=== PATIENT | female | born 1985 | race Caucasian/White ===

== ENCOUNTER 2020-02-10 11:00 | Outpatient (REF) | payer OTHER, SELFPAY ==
[2020-02-10 11:51] LABS: COVID-19 Test Negative (Negative)
== END 2020-02-10 11:01 | disposition home or self-care (01) ==
LOC: HO.LAB 11:00
PROVIDERS: Visit Provider Internal Medicine
DX: Z20.828 Contact with and (suspected) exposure to other viral communicable diseases (principal)
CPT/HCPCS: 87635

== ENCOUNTER 2020-03-30 08:57 | Outpatient (REF) | payer OTHER, SELFPAY ==
[2020-03-30 09:09] LABS: COVID-19 Test Positive (Negative)
== END 2020-03-30 08:58 | disposition home or self-care (01) ==
LOC: HO.EMPCOV 08:57
PROVIDERS: Visit Provider Internal Medicine
DX: Z20.828 Contact with and (suspected) exposure to other viral communicable diseases (principal)
CPT/HCPCS: 87635; C9803

== ENCOUNTER 2021-05-29 07:19 | Outpatient (REF) | payer OTHER, SELFPAY ==
[2021-05-29 07:57] LABS: Hematocrit 41.9 % (37.0-47.0); Hemoglobin 13.9 g/dl (12.0-16.0); Mean Corpuscular HGB Conc 33.2 g/dl (31.0-35.0); Mean Corpuscular Hemoglobin 30.7 pg (27.0-33.0); Mean Corpuscular Volume 92.5 fL (80.0-98.0); Mean Platelet Volume 9.8 fL (9.4-12.3); Platelet Count 271 X10*3/uL (160-400); Red Blood Count 4.53 X10*6/uL (4.20-5.50); Red Cell Distribution Width 11.9 % (11.0-16.0)
[2021-05-29 08:11] LABS: Estimated Average Glucose 97 mg/dL
[2021-05-29 08:47] LABS: Alanine Aminotransferase 13 U/L (0-31); Albumin Level 4.5 g/dL (3.5-5.0); Alkaline Phosphatase 70 U/L (39-117); Anion Gap 12 (12-20); Aspartate Amino Transferase 12 U/L (5-31); Bilirubin Total 0.4 mg/dL (0.0-1.0); Blood Urea Nitrogen 12 mg/dL (9-16); Calcium 9.5 mg/dL (8.4-10.2); Carbon Dioxide 28 mmol/L (22-29); Chloride 106 mmol/L (96-108); Cholesterol 165 mg/dL; Estimated Glomerular Filt Rate > 60; Glucose Random 91 mg/dL (60-115); HDL Cholesterol 50 mg/dL; LDL Cholesterol Calculated 103 mg/dl; Potassium 4.5 mmol/L (3.3-5.1); Sodium 141 mmol/L (135-145); Total Protein 7.1 g/dL (6.5-8.0); Triglycerides 64 mg/dL
[2021-05-29 08:53] LABS: Free T4 (Free Thyroxine) 0.96 ng/dL (0.71-1.85); Insulin 11 uU/mL (2-29); Thyroid Stimulating Hormone 1.01 uIU/mL (0.32-4.0); Vitamin D 25-OH Total 12.5 ng/mL (>30)
[2021-06-01 11:41] LABS: CRP High Sensitivity 5.3 mg/L
[2021-06-02 02:46] LABS: Thyroid Peroxidase Antibodies 1 IU/mL (<9)
[2021-06-05 11:36] LABS: Thyroglobulin Antibodies <1 IU/mL (< or = 1)
== END 2021-05-29 07:20 | disposition home or self-care (01) ==
LOC: HO.LAB 07:19
PROVIDERS: PCP Nurse Practitioner Family; Visit Provider Nurse Practitioner Family
DX: R73.01 Impaired fasting glucose (principal); E55.9 Vitamin D deficiency, unspecified; L65.9 Nonscarring hair loss, unspecified
CPT/HCPCS: 36415; 80053; 80061; 82306; 83036; 83525; 84439; 84443; 85027; 86141; 86376; 86800

== ENCOUNTER 2022-06-05 07:09 | Outpatient (REF) | payer OTHER, SELFPAY ==
[2022-06-05 07:20] LABS: MANUAL DIFF FLAG NO
[2022-06-05 07:42] LABS: Basophils Absolute Auto 0.1 X10*3/uL (0.0-0.2); Basophils Percent Auto 1.1 % (0-2); Eosinophils Absolute Auto 0.2 X10*3/uL (0.0-0.4); Hematocrit 40.7 % (37.0-47.0); Hemoglobin 13.8 g/dl (12.0-16.0); Imm Gran Abs Auto 0.02 X10*3/uL (0.00-0.03); Imm Gran Pct Auto 0.4 % (0.0-0.4); Lymphocytes Absolute Auto 1.5 X10*3/uL (1.2-4.9); Lymphocytes Percent Auto 28.3 % (20-40); Mean Corpuscular HGB Conc 33.9 g/dl (31.0-35.0); Mean Corpuscular Hemoglobin 30.4 pg (27.0-33.0); Mean Corpuscular Volume 89.6 fL (80.0-98.0); Mean Platelet Volume 9.6 fL (9.4-12.3); Monocytes Absolute Auto 0.4 X10*3/uL (0.1-1.2); Monocytes Percent Auto 7.2 % (2-11); Neutrophils Absolute Auto 3.2 x10*3/uL (2.0-8.3); Platelet Count 258 X10*3/uL (160-400); Red Blood Count 4.54 X10*6/uL (4.20-5.50); Red Cell Distribution Width 11.9 % (11.0-16.0); White Blood Count 5.4 X10*3/uL (4.8-10.8)
[2022-06-05 08:07] LABS: Alanine Aminotransferase 14 U/L (0-31); Albumin Level 4.3 g/dL (3.5-5.0); Alkaline Phosphatase 69 U/L (39-117); Anion Gap 14 (12-20); Aspartate Amino Transferase 12 U/L (5-31); Bilirubin Total 0.5 mg/dL (0.0-1.0); Blood Urea Nitrogen 12 mg/dL (9-16); Calcium 9.2 mg/dL (8.4-10.2); Carbon Dioxide 25 mmol/L (22-29); Chloride 106 mmol/L (96-108); Cholesterol 180 mg/dL; Estimated Glomerular Filt Rate > 60; Glucose Random 93 mg/dL (60-115); HDL Cholesterol 51 mg/dL; LDL Cholesterol Calculated 114 mg/dl; Potassium 4.3 mmol/L (3.3-5.1); Sodium 141 mmol/L (135-145); Total Protein 6.7 g/dL (6.5-8.0); Triglycerides 75 mg/dL
[2022-06-05 08:34] LABS: Thyroid Stimulating Hormone 0.75 uIU/mL (0.32-4.0); Vitamin B12 445 pg/mL (200-900); Vitamin D 25-OH Total 32.5 ng/mL (>30)
== END 2022-06-05 07:10 | disposition home or self-care (01) ==
LOC: HO.LAB 07:09
PROVIDERS: PCP Nurse Practitioner Family; Visit Provider Nurse Practitioner Family
DX: R53.83 Other fatigue (principal); E55.9 Vitamin D deficiency, unspecified; Z13.220 Encounter for screening for lipoid disorders
CPT/HCPCS: 36415; 80053; 80061; 82306; 82607; 84443; 85025

== ENCOUNTER 2022-06-13 14:43 | Outpatient (REF) | payer OTHER, SELFPAY ==
--- NOTE | ~2022-06-13 | XR_ITS ---
EXAMINATION: XR KNEE STANDING BILATERAL XR KNEE, LEFT KNEE CLINICAL INFORMATION: Left knee pain. COMPARISON: None. TECHNIQUE: Standing AP view of both knees and lateral and sunrise views of the left knee. FINDINGS: LEFT KNEE: Bones and soft tissues are normal. No fracture or joint effusion. Alignment is anatomic. Joint spaces are well maintained. No abnormal soft tissue calcification. RIGHT KNEE: The bones, joints, and soft tissues are normal on the single AP view. XR/XR knee LT 2V IMPRESSION: Normal knee radiographs.
--- NOTE | ~2022-06-13 | XR_ITS ---
EXAMINATION: XR KNEE STANDING BILATERAL XR KNEE, LEFT KNEE CLINICAL INFORMATION: Left knee pain. COMPARISON: None. TECHNIQUE: Standing AP view of both knees and lateral and sunrise views of the left knee. FINDINGS: LEFT KNEE: Bones and soft tissues are normal. No fracture or joint effusion. Alignment is anatomic. Joint spaces are well maintained. No abnormal soft tissue calcification. RIGHT KNEE: The bones, joints, and soft tissues are normal on the single AP view. XR/XR knee standing BI IMPRESSION: Normal knee radiographs.
== END 2022-06-13 14:44 | disposition home or self-care (01) ==
LOC: HO.HOSX 14:43
PROVIDERS: Visit Provider Physician Assistant
DX: S83.002A Unspecified subluxation of left patella, initial encounter (principal)
CPT/HCPCS: 73560; 73565

== ENCOUNTER 2022-06-24 11:29 | Outpatient (REF) | payer OTHER, SELFPAY ==
--- NOTE | ~2022-06-24 | US_ITS ---
EXAMINATION: US THYROID CLINICAL INFORMATION: Localized swelling, mass and lump, neck. COMPARISON: None TECHNIQUE: Linear transducer grayscale and color Doppler examination with attention to the region of the thyroid. FINDINGS: SIZE: Measurements of the thyroid lobes and nodules are given in sagittal, anteroposterior and transverse dimensions respectively. Right Thyroid Lobe: 5.2 x 1.6 x 2.4 cm, volume 10.4 mL. Parenchyma: The gland echotexture is homogeneous. Thyroid vascularity is normal. Left Thyroid Lobe: 5.0 x 1.4 x 1.8 cm, volume 6.6 mL. Parenchyma: The gland echotexture is homogeneous. Thyroid vascularity is normal. Isthmus: 0.4 cm in maximum AP dimension. Estimated total number of nodules greater than or equal to 1 cm: 0. Cannery Tender Engineer nodules are described as follows: 1. Location: Right mid. Size: 0.5 x 0.6 x 0.4 cm, volume 0.073 mL. Nodule characteristics: Composition: Solid (2). Echogenicity: Hypoechoic (2). Shape: Not taller than wide (0). Margins: Smooth (0). Echogenic Foci: None (0). ACR TI-RADS total points: 4 ACR TI-RADS category: 4 2. Location: Right mid. Size: 0.2 x 0.3 x 0.2 cm, volume 0.004 mL. Nodule characteristics: Composition: Cystic(0). ACR TI-RADS total points: 0 ACR TI-RADS category: 1 3. Location: Right inferior. Size: 0.3 x 0.3 x 0.2 cm, volume 0.009 mL. Nodule characteristics: Composition: Cystic(0). ACR TI-RADS total points: 0 ACR TI-RADS category: 1 4. Location: Left superior. Size: 0.3 x 0.3 x 0.2 cm, volume 0.007 mL. Nodule characteristics: Composition: Cystic(0). ACR TI-RADS total points: 0 ACR TI-RADS category: 1 NODES: No lymphadenopathy is seen in the tissue surrounding the thyroid gland. US/US thyroid IMPRESSION: Multiple small thyroid nodules more on the right side. Slight enlarged right thyroid lobe measuring 10.4 mL. ACR TI-RADS RECOMMENDATION REFERENCE: Ultrasound-guided fine-needle aspiration, followup ultrasound, no further followup. * TR1 (0 point) and TR2 (2 points): No FNA or follow up. * TR3 (3 points): FNA if more than or equal to 2.5 cm in maximum dimension, followup ultrasound in 1, 3 and 5 years if 1.5 to 2.4 cm in maximum dimension. * TR4 (4-6 points): FNA if more than or equal to 1.5 cm in maximum dimension, followup ultrasound in 1, 2, 3 and 5 years if 1 to 1.4 cm in maximum dimension. * TR5 (more than or equal to 7 points): FNA if more than or equal to 1 cm in maximum dimension, followup ultrasound every year for 5 years if 0.5 to 0.9 cm in maximum dimension. * TR3, TR4 or TR5 nodules that are below the size threshold for followup receive no followup.
== END 2022-06-24 11:30 | disposition home or self-care (01) ==
LOC: HO.US 11:29
PROVIDERS: PCP Nurse Practitioner Family; Visit Provider Nurse Practitioner Family
DX: R22.1 Localized swelling, mass and lump, neck (principal)
CPT/HCPCS: 76536

== ENCOUNTER 2023-06-12 09:24 | Outpatient (REF) | payer OTHER, SELFPAY ==
--- NOTE | ~2023-06-12 | US_ITS ---
EXAMINATION: US THYROID CLINICAL INFORMATION: Localized mass, swelling, lump neck. COMPARISON: Ultrasound soft tissue head/neck thyroid dated 06/24/2022. TECHNIQUE: Linear transducer grayscale and color Doppler examination with attention to the region of the thyroid. FINDINGS: SIZE: Measurements of the thyroid lobes and nodules are given in sagittal, anteroposterior and transverse dimensions respectively. Right Thyroid Lobe: 5.6 x 1.4 x 2.4 cm, volume 10.1 mL. Previously 5.2 x 1.6 x 2.4 cm, volume 10.4 mL. Parenchyma: The gland echotexture is homogeneous. Thyroid vascularity is normal. Left Thyroid Lobe: 5.2 x 1.2 x 1.9 cm, volume 6.0 mL. Previously 5.0 x 1.4 x 1.8 cm, volume 6.6 mL. Parenchyma: The gland echotexture is homogeneous. Thyroid vascularity is normal. Isthmus: 0.3 cm in maximum AP dimension. Previously 0.4 cm. Estimated total number of nodules greater than or equal to 1 cm: 0. Identity Management Consultant nodules are described as follows: 1. Location: Right mid. Size: 0.2 x 0.2 x 0.2 cm, volume 0.003 mL. Previously: 0.2 x 0.2 x 0.3 cm, volume 0.004 mL. Nodule characteristics: Composition: Cystic(0). ACR TI-RADS total points: 0 Previous: 0 ACR TI-RADS category: 1 Previous: 1 Significant change in size (>/= 20% in 2 dimensions and minimal increase of 2 mm or 50% or greater increase in volume): No Change in features: No Change in ACR TI-RADS risk category: No 2. Location: Right mid. Size: 0.6 x 0.4 x 0.4 cm, volume 0.05 mL. Previously: 0.5 x 0.6 x 0.4 cm, volume 0.07 mL. Nodule characteristics: Composition: Solid (2). Echogenicity: Hypoechoic (2). Shape: Not taller than wide (0). Margins: Smooth (0). Echogenic Foci: None (0). ACR TI-RADS total points: 4 Previous: 4 ACR TI-RADS category: 4 Previous: 4 Significant change in size (>/= 20% in 2 dimensions and minimal increase of 2 mm or 50% or greater increase in volume): No Change in features: No Change in ACR TI-RADS risk category: No 3. Location: Left superior. Size: 0.2 x 0.2 x 0.3 cm, volume 0.004 mL. Previously: 0.3 x 0.3 x 0.2 cm, volume 0.007 mL. Nodule characteristics: Composition: Cystic(0). ACR TI-RADS total points: 0 Previous: 0 ACR TI-RADS category: 1 Previous: 1 Significant change in size (>/= 20% in 2 dimensions and minimal increase of 2 mm or 50% or greater increase in volume): No Change in features: No Change in ACR TI-RADS risk category: No NODES: No lymphadenopathy is seen in the tissue surrounding the thyroid gland. US/US thyroid IMPRESSION: 1. Bilateral thyroid nodules are seen, as detailed. No specific imaging follow-up is recommended. 2. There is a mild asymmetric goiter, right lobe greater than left. ACR TI-RADS RECOMMENDATION REFERENCE: Ultrasound-guided fine-needle aspiration, follow up ultrasound, no further followup. * TR1 (0 point) and TR2 (2 points): No FNA or followup * TR3 (3 points): FNA if more than or equal to 2.5 cm in maximum dimension, follow up ultrasound in 1, 3 and 5 years if 1.5 to 2.4 cm in maximum dimension. * TR4 (4-6 points): FNA if more than or equal to 1.5 cm in maximum dimension, follow up ultrasound in 1, 2, 3 and 5 years if 1 to 1.4 cm in maximum dimension. * TR5 (more than or equal to 7 points): FNA if more than or equal to 1 cm in maximum dimension, follow up ultrasound every year for 5 years if 0.5 to 0.9 cm in maximum dimension. * TR3, TR4 or TR5 nodules that are below the size threshold for follow up receive no followup.
== END 2023-06-12 09:25 | disposition home or self-care (01) ==
LOC: HO.US 09:24
PROVIDERS: Visit Provider Nurse Practitioner Family
DX: E04.1 Nontoxic single thyroid nodule (principal)
CPT/HCPCS: 76536

== ENCOUNTER 2024-06-16 07:23 | Outpatient (REF) | payer OTHER, SELFPAY ==
--- NOTE | ~2024-06-16 | XR_ITS ---
EXAMINATION: XR HIP, RIGHT CLINICAL INFORMATION: PAIN IN RIGHT HIP COMPARISON: None available. TECHNIQUE: Two views of the right hip. FINDINGS: No fracture. Alignment is anatomic. Hip joint space is maintained. Normal acetabular coverage. Soft tissues are unremarkable. IUD within the pelvis. XR/XR hip RT min 2V IMPRESSION: Normal right hip. Electronically signed by: Puma Patel MD 06/16/2024 12:32 PM [facility]
[2024-06-16 07:39] LABS: MANUAL DIFF FLAG NO
[2024-06-16 07:57] LABS: Basophils Absolute Auto 0.1 X10*3/uL (0.0-0.2); Eosinophils Absolute Auto 0.2 X10*3/uL (0.0-0.4); Eosinophils Percent Auto 3.1 % (0-4); Hematocrit 41.5 % (37.0-47.0); Hemoglobin 14.3 g/dl (12.0-16.0); Imm Gran Abs Auto 0.02 X10*3/uL (0.00-0.03); Imm Gran Pct Auto 0.4 % (0.0-0.4); Lymphocytes Absolute Auto 1.4 X10*3/uL (1.2-4.9); Lymphocytes Percent Auto 27.2 % (20-40); Mean Corpuscular HGB Conc 34.5 g/dl (31.0-35.0); Mean Corpuscular Hemoglobin 31.4 pg (27.0-33.0); Mean Platelet Volume 9.5 fL (9.4-12.3); Monocytes Absolute Auto 0.4 X10*3/uL (0.1-1.2); Neutrophils Absolute Auto 3.2 x10*3/uL (2.0-8.3); Neutrophils Percent Auto 60.3 % (45-73); Platelet Count 253 X10*3/uL (160-400); Red Blood Count 4.56 X10*6/uL (4.20-5.50); Red Cell Distribution Width 11.8 % (11.0-16.0); White Blood Count 5.2 X10*3/uL (4.8-10.8)
[2024-06-16 08:12] LABS: Appearance Urine Clear; Color Urine Yellow; Glucose Urine UA Negative (Negative); Leukocyte Esterase Urine Negative (Negative); Nitrite Urine Negative (Negative); Urine Blood Negative (Negative); Urine Ketones Negative (Negative); Urine Protein Negative (Neg-Trace)
[2024-06-16 08:34] LABS: Alanine Aminotransferase 21 U/L (0-31); Albumin Level 4.5 g/dL (3.5-5.0); Alkaline Phosphatase 55 U/L (39-117); Anion Gap 12 (12-20); Aspartate Amino Transferase 17 U/L (5-31); Bilirubin Total 0.4 mg/dL (0.0-1.0); Blood Urea Nitrogen 12 mg/dL (9-16); Calcium 9.6 mg/dL (8.4-10.2); Carbon Dioxide 29 mmol/L (22-29); Chloride 105 mmol/L (96-108); Cholesterol 183 mg/dL (<200); Estimated Glomerular Filt Rate > 60; Glucose Random 88 mg/dL (60-115); HDL Cholesterol 64 mg/dL (>40); LDL Cholesterol Calculated 109 mg/dL (<100); Potassium 4.6 mmol/L (3.3-5.1); Sodium 141 mmol/L (135-145); Total Protein 7.5 g/dL (6.5-8.0); Triglycerides 54 mg/dL (<150)
[2024-06-16 08:49] LABS: TSH reflex Free T4 0.85 uIU/mL (0.32-4.0)
[2024-06-16 09:19] LABS: ~HepC Num1 0.09 S/CO (0.00-0.79); ~Hepatitis C Antibody Nonreactive (Nonreactive)
== END 2024-06-16 07:24 | disposition home or self-care (01) ==
LOC: HO.XRAY 07:23
PROVIDERS: PCP Nurse Practitioner Family; Visit Provider Nurse Practitioner Family
DX: Z00.00 Encounter for general adult medical examination without abnormal findings (principal); M25.551 Pain in right hip; E55.9 Vitamin D deficiency, unspecified
CPT/HCPCS: 36415; 73502; 80053; 80061; 81003; 82306; 84443; 85025; 86803

== ENCOUNTER → 2024-06-16 07:42 | Outpatient (BNV) | payer OTHER, SELFPAY | PROVIDERS: PCP Nurse Practitioner Family; Visit Provider Radiology Diagnostic Radiology | DX: M25.551 Pain in right hip (principal) | CPT/HCPCS: 73502 ==

== ENCOUNTER 2024-11-09 13:27 | Outpatient (REF) | payer OTHER, SELFPAY ==
--- NOTE | ~2024-11-09 | US_ITS ---
EXAMINATION: US THYROID HISTORY: THYROID NODULE TECHNIQUE: Real-time grayscale ultrasound imaging was performed and images were reviewed. COMPARISON: Comparison is made with the prior examination dated 06/12/2023. FINDINGS: SIZE: The right thyroid lobe measures 5.4 x 1.8 x 2.5 cm. The left thyroid lobe measures 5.7 x 1.7 x 2.2 cm. The isthmus measures 4 mm. FLOW: Flow to the gland is normal. ECHOGENICITY: The echotexture of the gland is homogeneous. NODULES: Multiple subcentimeter nodules are again identified, most of which are cystic. A single solid nodule is identified on today's examination as described below: Nodule #: 1 Location: Midportion of the right thyroid lobe measuring 7 x 4 x 7 mm (previously 6 x 4 x 4 mm). Shape: Wider than tall (0 points) Margins: Smooth (0 points) Echotexture: Hyperechoic (1 point) Composition: Solid (2 points) Calcifications: None (0 points) Total points: 3 TIRADS: TR3: Mildly suspicious. US/US thyroid IMPRESSION: Subcentimeter cysts and thyroid nodules as described. ACR TI-RADS Guidelines TR1 (0 points): Benign, No follow-up or biopsy required TR2 (2 points): Not Suspicious, No biopsy or follow up indicated TR3 (3 points): Mildly Suspicious, FNA if >= 2.5 cm, Follow if >= 1.5 cm TR4 (4-6 points): Moderately Suspicious, FNA if >= 1.5 cm, Follow if >= 1.0 cm TR5 (>=7 points): Highly Suspicious, FNA if >= 1.0 cm, Follow if >= 0.5 cm Electronically signed by: Deonte Morales MD 11/09/2024 02:22 PM EDT
--- OUTSIDE RECORDS SUMMARY | 2024-11-09 14:49 | XMS_ITS | Clinical Summary ---
Author Organization [facility] Address [address] [place] [address] Care Team Providers Care Tanbark Peeler Name Role Phone Unavailable Primary Care Provider Unavailabl e Medications Medication Sig Dispensed Refills Start Date End Date Status EBER 0.35 MG tablet 3 11/22/2015 Act bg sertraline (ZOLOFT) 50 MG tablet 5 11/22/2015 Active Social History Tobacco Use Types Packs/Day Years Used Date Smoking Tobacco: Never Alcohol Use Standard Drinks/Week Comments Yes 0 (1 standard drink = 0.6 oz pur e alcohol) Occasionally Sex and Gender Information Value Date Recorded Sex Assigned at Not on file Gender Identity Not on file Sexual Orientation Not on file Plan of Treatment Health Maintenance Due Date Last Done Comments Hepatitis B Vaccines (1 of 3 - 3-dose series) 1985 Hepatitis C Screening 1985 COVID-19 Vaccine (#1) 04/29/1986 Depression Screening 1997 Preventative Health Evaluation 10/28/2003 DTap / Tdap / Td (1 - Tdap) 2004 Cervical Cancer Screening (P ap Smear) 2006 Influenza Vaccine (#1) 2024 Pneumococcal Vaccine Aged Out No long er eligible based on patient's age to complete this topic RSV Ped < 20 months Aged Out No longe r eligible based on patient's age to complete this topic
--- OUTSIDE RECORDS SUMMARY | 2024-11-09 14:49 | XMS_ITS | Patient Health Record ---
Author Organization John Li MD Address [address] [phone] Care Team Providers Care Sports Anchor Name Role Phone Dana Pruett Primary Care Provider Allergies No Known Allergies Results Component Value Reference Range Notes CR Hip Uni 2-3 Views RT Reviewed date:07/30/2024 10:51:58 AM Interpretation: Performing Lab: Notes/Report: Reason For Referral No Information Medications Medication SIG (Take, Route, Frequency, Duration) Notes Start Date End Date Status Mirena inserted in 2018 Act bg buPROPion HCl ER (SR) 150 MG TAKE TWO (2) TABLETS (300MG) BY MOUTH EVERY DAY IN THE MORNING; Duration: 30 Active Naltrexone HCl 50 MG TAKE ONE (1) TABLET BY MOUTH EVERY DAY; Duration: 30 Active Propranolol HCl 10 MG TAKE 1 TABLET BY MOUTH ONCE A DAY NEEDED FOR ANXIETY; Duration: 30 Active Vitamin D Active Immunizations Vaccine Route Administration Date Status Comme nts [id number] Vaccine Unknown 04/25/2020 Administered [id number] Vaccine Unknown 05/17/2020 Administered *Tdap Unknown 06/05/2016 Administered Influenza-Afluria (IIV4) Unknown 06/01/2019 Administere d Influenza-Afluria (IIV4) Unknown 02/23/2020 Administere d Social History Tobacco Use: Social History Observation Description Date Details (start date - stop date) Never Smoker NA - NA Tobacco Use/Smoking Question Answer Notes Are you a nonsmoker Alcohol Screen (Audit-C) Question Answer Notes Did you have a drink contain ing alcohol in the past year? Yes How often did you have a dri nk containing alcohol in the past year? 2 to 4 times a month (2 points) How many drinks did you have on a typical day when you were drinking in the past year? 1 or 2 drinks (0 point) How often did you have 6 or more drinks on one occasion in the past year? Never (0 point) Points 2 Interpretation Negative Tobacco use other than smoking: Question Answer Notes Are you an other tobacco user? No AUDIT-C (Standard) Question Answer Notes Did you have a drink contain ing alcohol in the past year? Yes How often did you have six o r more drinks on one occasion in the past year? Never (0 point) How many drinks did you have on a typical day when you were drinking in the past year? 1 or 2 drinks (0 point) How often did you have a dri nk containing alcohol in the past year? Monthly or less (1 point) Points 1 Interpretation Negative Problems Problem Type SNOMED Code ICD Code Onset Dates Problem Status W/U Status Risk Notes Problem Non-toxic single thyroid nodule (694692451) Nontoxic single thyroid nodule (E04.1) Active confirmed Problem Vitamin D deficiency (83784401) Vitamin D deficiency, unspecified (E55.9) Active confirmed Problem Major depression, single episode, in complete remission (74671982) Major depressive disorder, single episode, in full remission (F32.5) Active confirmed Problem Mild recurrent major depression (02421010) Major depressive disorder, recurrent, mild (F33.0) Active confirmed Problem Generalized anxiety disorder (51836231) Generalized anxiety disorder (F41.1) Active confirmed Problem Rosacea (065791223) Other rosacea (L71.8) Active confirmed Problem Body mass index 30.00 to 34.99 (391020993619564 ) Body mass index [BMI] 33.0-33.9, adult (Z68.33) Active confirmed Vital Signs Heart Rate 84 /min 09/06/2024 Temperature 97.3 degrees Fahrenheit 09/06/2024 Oximetry 98 % 09/06/2024 Blood pressure diastolic 68 mm Hg 09/06/2024 Height 65.5 in 09/06/2024 Blood pressure systolic 114 mm Hg 09/06/2024 Weight 184 lbs 09/06/2024 BMI 30.15 kg/m2 09/06/2024 Encounters Encounter Location Date Provider Diagnosis John Li MD [address] [place] [id number] 06/10/2024 Dana Pruett Encounter for genera l adult medical examination without abnormal findings Z00.00 ; Nontoxic single thyroid nodule E04.1 ; Major depressive disorder, recurrent, mild F33.0 ; Body mass index [BMI] 27.0-27.9, adult Z68.27 ; Pain in right hip M25.551 ; Vitamin D deficiency, unspecified E55.9 ; Encounter for screening mammogram for malignant neoplasm of breast Z12.31 ; Encounter for screening for cardiovascular disorders Z13.6 ; Encounter for immunization Z23 ; Encounter for antibody response examination Z01.84 ; Encounter for screening for other viral diseases Z11.59 ; Encounter for screening examination for other mental health and behavioral disorders Z13.39 and Encounter for screening for malignant neoplasm of cervix Z12.4 John Li MD [address] [id number] 09/06/2024 Dana Pruett Body mass index [BMI ] 27.0-27.9, adult Z68.27 ; Nontoxic single thyroid nodule E04.1 ; Major depressive disorder, recurrent, mild F33.0 and Pain in right hip M25.551 John Li MD [address] [id number] 07/20/2024 Dana Pruett John Li MD [address] [id number] 12/08/2023 Dana Pruett Other rosacea L71.8 John Li MD [address] [id number] 07/05/2024 Dana Pruett Body mass index [BMI ] 27.0-27.9, adult Z68.27 Assessments Encounter Date Diagnosis (ICD Code) Assessment Notes Treatment Notes Treatment Clinical Notes Section Notes 12/08/2023 Other rosacea (ICD-10 - L71.8) 07/05/2024 Body mass index [BMI] 27.0-27.9, adult (ICD-10 - Z68.27) 09/06/2024 Nontoxic single thyroid nodule (ICD-10 - E04.1) Patient with previous findings of multiple thyroid nodules, all less than 1 cm in size. Patient admits to not obtaining her updated thyroid u/s and order printed and provided to pt again to complete through [facility]. Discuss with patient that we can repeat ultrasound at this time and if thyroid nodules are stable and have not shown change in appearance or size, would not need to continue to monitor frequently 09/06/2024 Body mass index [BMI] 27.0-27.9, adult (ICD-10 - Z68.27) Patient continues to work on weight loss with diet and exercise. She is taking Wellbutrin and Naltrexone without any negative side effects. She has not lost much weight and due to this, will increase her Wellbutrin dosing for further assistance in reaching her weight loss goals. Pt to follow up in 3 months for weight check up 06/10/2024 Nontoxic single thyroid nodule (ICD-10 - E04.1) Patient with previous findings of multiple thyroid nodules, all less than 1 cm in size. Did discuss with patient that we can repeat ultrasound at this time and if thyroid nodules are stable and have not shown change in appearance or size, would not need to continue to monitor frequently 06/10/2024 Encounter for general adult medical examination without abnormal findings (ICD-10 - Z00.00) General healthcare up-to-date. Will obtain updated routine labs. Did provide patient with printout as she needs to have these labs drawn at [facility].Plan we for annual in 1 year 06/10/2024 Major depressive disorder, recurrent, mild (ICD-10 - F33.0) Stable and patient has seen great improvement in her underlying low moods with use of Wellbutrin. Patient to remain on current medication regimen 09/06/2024 Major depressive disorder, recurrent, mild (ICD-10 - F33.0) Stable and patient has seen great improvement in her underlying low moods with use of Wellbutrin 09/06/2024 Pain in right hip (ICD-10 - M25.551) Patient shares that her concerns of intermittent right hip pain at last appointment has resolved on it's own. She did not complete the XRay but is aware to follow up if pain returns 06/10/2024 Body mass index [BMI] 27.0-27.9, adult (ICD-10 - Z68.27) Patient was previously treated with Wegovy but discontinued use of this medication at the beginning of the year due to her insurance not covering Wegovy. Patient has gained back nearly 20 pounds and is frustrated with this weight gain. Patient did try phentermine in the past which caused increased anxiety. We did discuss oral weight loss medications and patient did request starting Contrave. Discussed with patient that she is currently on Wellbutrin which is part of the Contrave tablet. Would like pt to begin naltrexone, 25 mg daily, as well as continuing her 150 mg of Wellbutrin. Will continue to have close follow-up and can increase patient's naltrexone as well as Wellbutrin to further assist in lowering her BMI as well as managing her mental health without causing much if she is not seeing improvement in her BMI with this new medication regimen. Plan will be for follow-up in 3 months and patient aware to follow-up sooner should she have any negative side effects from starting this medication 06/10/2024 Pain in right hip (ICD-10 - M25.551) Patient shares concerns of intermittent right hip pain that begins more when patient goes from sitting to standing. There were no significant findings on evaluation today. Would like patient to obtain a right hip x-ray. Also encouraged patient to begin over this counter treatment with Motrin 600 mg twice a day and if this d Tylenol arthritisoes not improve her discomfort she could consider trialing to see if this further improves her symptoms. Patient update the office on if any [id number] treatments do help resolve her symptoms and will continue to monitor for x-ray results further evaluate for underlying causes 06/10/2024 Vitamin D deficiency, unspecified (ICD-10 - E55.9) Will check level to verify that there is no deficiency 06/10/2024 Encounter for screening mammogram for malignant neoplasm of breast (ICD-10 - Z12.31) Will begin breast cancer screening at age 40 for screening guidelines 06/10/2024 Encounter for screening for cardiovascular disorders (ICD-10 - Z13.6) Blood pressure stable. Will check for comorbidity of hyperlipidemia and hyperglycemia to further assess risk 06/10/2024 Encounter for immunization (ICD-10 - Z23) Vaccines up-to-date 06/10/2024 Encounter for antibody response examination (ICD-10 - Z01.84) Titers have been checked in the past and there is immunity to rubeola 06/10/2024 Encounter for screening for other viral diseases (ICD-10 - Z11.59) Will screen for hepatitis C as per general recommendation 06/10/2024 Encounter for screening examination for other mental health and behavioral disorders (ICD-10 - Z13.39) PHQ score reviewed and no further interventions warranted at this time 06/10/2024 Encounter for screening for malignant neoplasm of cervix (ICD-10 - Z12.4) Patient admits to not having an updated Pap smear since 2020. She also had her IUD placed nearly 7 years ago. 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 visit 06/10/2024 Other Plan Of Treatment Pending Test Test Name Order Date 1,25OH VITAMIN D 05/13/2022 25OH VITAMIN D 06/09/2023 COMPLETE BLOOD COUNT 05/13/2022 COMPLETE CBC WITH DIFF 06/09/2023 COMPLETE URINALYSIS 06/09/2023 COMPREHENSIVE METABOLIC PANEL 05/13/2022 COMPREHENSIVE METABOLIC PANEL 06/09/2023 LIPID PANEL 05/13/2022 TSH 05/13/2022 TSH WITH REFLEX TO FT4 06/09/2023 VITAMIN B12 05/13/2022 US Thyroid 06/10/2024 ANTI-HEPATITIS C W/RFLX HCV QNT 06/09/19 24 MMR (MEASLES, MUMPS, RUBELLA) IGG TITER 06/09/2023 Urinalysis, Complete-[id number] 06/10/2024 CBC With Differential/Platelet-[id number] Vitamin D, 11-Wbmghmo-[id number] 06/10/2024 HCV Antibody RFX to Quant PCR-[id number] Comp. Metabolic Panel [id number] 2024 LP+Non-HDL Cholesterol-[id number] 06/10/2024 TSH reflex to [id number] 06/10/2024 Next Appt Details Provider Name:Dana Pruett , 12/09/2024 02:00:00 PM, [address] [place] [address], [phone], Provider Name:Dana Pruett , 07/06/2025 03:30:00 PM, [address] [place] [address], [phone], Insurance Providers Payer Name Payer Address Payer Phone Subscriber Number Group Number Insured Name Patient Relationship to Insured Coverage Start Date Coverage End Date [employer] P[employer] [address] [place] [address] [phone] [id number] Rosy Aguilar Self - patient is the insured Medical (General) History Medical History History ICD Code depression anxiety Surgical History Surgery Date(Month/Year) Hospitalization History Reason Date(Month/Year)
== END 2024-11-09 13:28 | disposition home or self-care (01) ==
LOC: HO.US 13:27
PROVIDERS: PCP Nurse Practitioner Family; Visit Provider Nurse Practitioner Family
DX: E04.1 Nontoxic single thyroid nodule (principal)
CPT/HCPCS: 76536

== ENCOUNTER → 2024-11-09 13:29 | Outpatient (BNV) | payer OTHER, SELFPAY | PROVIDERS: PCP Nurse Practitioner Family; Visit Provider Radiology Diagnostic Radiology | DX: E04.1 Nontoxic single thyroid nodule (principal) | CPT/HCPCS: 76536 ==

== ENCOUNTER 2024-12-13 08:54 | Outpatient (REF) | payer OTHER, SELFPAY | END 2024-12-13 08:55 | disposition home or self-care (01) | LOC: HO.LNP 08:54 | PROVIDERS: PCP Nurse Practitioner Family; Visit Provider Obstetrics & Gynecology | DX: Z30.431 Encounter for routine checking of intrauterine contraceptive device (principal) | CPT/HCPCS: 87626; 88175 ==

== ENCOUNTER 2024-12-13 08:54 | Outpatient (AMB) | payer OTHER, SELFPAY ==
--- NOTE | 2024-12-13 09:01 | A.OFFVIS_ITS ---
Vital Signs 12/13/24 09:05 Height 5 ft 5 in Weight 182 lb BMI 30.3 BP 118/84 Intake Visit Reasons: Control Allergies No Known Allergies (No Known Allergies*) Allergy (Verified 06/13/22 12:46) Is last menstrual period known: No (mirena) HPI Comments Details: Presenting for annual exam. No complaints. 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 Reproductive History Menstrual control method: progesterone injection Total pregnancies: 2 Full term: 2 Number of Living Children: 2 Review of Systems Const All systems reviewed & are unremarkable except as noted in HPI and below Card Reports as per HPI Resp Reports as per HPI GI Reports as per HPI and Reports no additional complaints Reports as per HPI Physical Exam Vital Signs: Last Vital Signs BP 118/84 12/13/24 09:05 BMI result Body Mass Index 30.3 Const General: cooperative, healthy appearing and comfortable Chest Chest palpation & inspection: normal inspection of the chest and normal palpation of entire chest wall Breast/axilla inspection: normal inspection of the breasts and normal inspection of the axillae Breast/axilla palpation: normal palpation of the breasts, normal palpation of the axillae and no axillary lymphadenopathy Resp Effort & Inspection: normal respiratory effort Auscultation: clear to auscultation bilaterally Percussion: percussion normal Cardio Palpation: normal PMI Rate: regular rate Rhythm: regular rhythm Heart sounds: no murmurs and no rubs Peripheral pulses: Peripheral pulses 2+ throughout GI Inspection: Yes normal to inspection Palpation (GI): Soft to palpation, nontender, no guarding, not rigid and No hepatosplenomegaly present Percussion: Yes normal to percussion Auscultation: normal bowel sounds Rectal Exam - Female: deferred General: Yes bladder normal to palpation External Female Exam: No lesion Speculum Exam - Vagina: normal appearance of the vagina, normal palpation, normal vaginal discharge and not erythematous Speculum Exam - Cervix: normal appearance of the cervix, normal palpation and Other cervical findings present (IUD string in place) Bimanual exam- vagina & uterus: normal bimanual exam, normal palpation, uterine size normal, bladder normal to palpation, consistency normal and normal palpation Bimanual Exam- Adnexa, other: normal adnexae, no masses and no tenderness Assessment & Plan Assessment & Plan (1) Well woman exam: Code(s): Z01.419 - Encounter for gynecological examination (general) (routine) without abnormal findings Category: Medical Plan: Cotesting done. Counseled the patient about the recommended dietary allowance of 1000 mg of Calcium & 600 IU of vitamin D. The patient was instructed to perform monthly self-breast exams and to schedule an annual exam in a year; All questions answered and the patient verbalized understanding. Instructed the patient to schedule annual exam in a year (2) IUD check up: Code(s): Z30.431 - Encounter for routine checking of intrauterine contraceptive device Category: Medical Plan: Discussed with the patient the finding on physical exam, IUD string in place, the patient was reassured. Instructions given to patient to schedule Mirena IUD removal and reinsertion prior to 11/12/2025. All questions answered, the patient verbalized understanding. Coding Level of Care Code New Pt Prev Care 40-64y(94194) Diagnoses Well woman exam Z01.419 IUD check up Z30.431
[2024-12-13 09:05] VITALS: BP 118/84; BMI 30.3
--- OUTSIDE RECORDS SUMMARY | 2024-12-13 09:22 | XMS_ITS | Clinical Summary ---
Author Organization [facility] Address [address] [place] [address] Care Team Providers Care Game Design Instructor Name Role Phone Unavailable Primary Care Provider [...]
--- OUTSIDE RECORDS SUMMARY | 2024-12-13 09:22 | XMS_ITS | Patient Health Record ---
Author Organization [facility] Address [address] [id number] Care Team Providers Care Inpatient Nursing Aide Name Role Phone Dana Pruett Primary Care Provider [phone] Allergies No Known Allergies Results Component Value Reference Range Notes US Thyroid Reviewed date:11/10/2024 02:41:37 PM Interpretation: Performing Lab: Notes/Report: CR Hip Uni 2-3 Views RT Reviewed date:07/30/2024 10:51:58 AM Interpretation: Performing Lab: Notes/Report: Reason For Referral Reason faxed Diagnosis 1 Encounter for remova l and reinsertion of intrauterine contraceptive device (Z30.433) Referral Organization [facility] Referring Provider First Name Dana Referring Provider Last Name Seble Referring Provider Speciality Nurse Prac titionerochelle Referred Provider Lulu Troncoso Referred Provider Specialty OB - Gynecol ogy General Notes Donna FAULKNER 10/28 05:39:59 PM >faxed, patient notified Referral Priority Routine Medications Medication SIG (Take, Route, Frequency, Duration) [...] Vaccine Route Administration Date Status Comme nts Influenza-Afluria (IIV4) Unknown 06/01/2019 Administere d Influenza-Afluria (IIV4) Unknown 02/23/2020 Administere d [id number]-17-Mpostd Vaccine Unknown 04/25/2020 Administered ZZHFS-98-Isxlih Vaccine Unknown 05/17/2020 Administered *Tdap Unknown 06/05/2016 Administered Social History Tobacco Use: Social History Observation [...] Risk Notes Problem Non-toxic single thyroid nodule (524161206) Nontoxic single thyroid nodule (E04.1) Active confirmed Problem Vitamin D deficiency (00135558) Vitamin D deficiency, unspecified (E55.9) Active confirmed Problem Major depression, single episode, in complete remission (89565518) Major depressive disorder, single episode, in full remission (F32.5) Active confirmed Problem Mild recurrent major depression (42600733) Major depressive disorder, recurrent, mild (F33.0) Active confirmed Problem Generalized anxiety disorder (65369794) Generalized anxiety disorder (F41.1) Active confirmed Problem Rosacea (234461949) Other rosacea (L71.8) Active confirmed Problem Body mass index 30.00 to 34.99 (579108216500363 ) Body mass index [BMI] 33.0-33.9, adult (Z68.33) Active confirmed Vital Signs Heart Rate 84 /min 09/06/2024 Temperature 97.3 degrees Fahrenheit 09/06/2024 Oximetry 98 % 09/06/2024 Blood pressure diastolic 68 mm Hg 09/06/2024 Height 65.5 in 09/06/2024 Blood pressure systolic 114 mm Hg 09/06/2024 Weight 184 lbs 09/06/2024 BMI 30.15 kg/m2 09/06/2024 Encounters Encounter Location Date Provider Diagnosis [facility] [address] [id number] 06/10/2024 Dana Pruett Encounter for genera l [...] neoplasm of cervix Z12.4 [facility] [address] [id number] 09/06/2024 Dana Pruett Body mass index [BMI ] 27.0-27.9, adult Z68.27 ; Nontoxic single thyroid nodule E04.1 ; Major depressive disorder, recurrent, mild F33.0 and Pain in right hip M25.551 [facility] [address] [id number] 07/20/2024 Dana Li MD [address] [id number] 11/24/2024 [facility] MD [address] [id number] 07/05/2024 Dana Pruett Body mass index [BMI ] 27.0-27.9, adult Z68.27 [facility] [address] [id number] 11/12/2024 [facility] Li MD [address] [id number] 11/18/2024 Dana Pruett Assessments Encounter Date Diagnosis (ICD Code) Assessment Notes Treatment Notes Treatment Clinical Notes Section Notes 06/10/2024 Nontoxic single thyroid nodule (ICD-10 - [...] needs to have these labs drawn at [facility].Plan we for annual in 1 year 07/05/2024 Body mass index [BMI] 27.0-27.9, adult (ICD-10 - Z68.27) 09/06/2024 Nontoxic single thyroid nodule (ICD-10 - E04.1) Patient with previous findings of multiple thyroid nodules, all less than 1 cm in size. Patient admits to not obtaining her updated thyroid u/s and order printed and provided to pt again to complete through [facility]. Discuss with patient that we can [...] in 3 months for weight check up 09/06/2024 Major depressive disorder, recurrent, mild (ICD-10 - F33.0) Stable and patient has seen great improvement in her underlying low moods with use of Wellbutrin 06/10/2024 Major depressive disorder, recurrent, mild (ICD-10 - F33.0) Stable and patient has seen great improvement in her underlying low moods with use of Wellbutrin. 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 visit 06/10/2024 Other Plan Of Treatment Pending Test Test Name Order Date 1,25OH VITAMIN D 05/13/2022 25OH VITAMIN D 06/09/2023 COMPLETE BLOOD COUNT 05/13/2022 COMPLETE CBC WITH DIFF 06/09/2023 COMPLETE URINALYSIS 06/09/2023 COMPREHENSIVE METABOLIC PANEL 05/13/2022 COMPREHENSIVE METABOLIC PANEL 06/09/2023 LIPID PANEL 05/13/2022 TSH 05/13/2022 TSH WITH REFLEX TO FT4 06/09/2023 VITAMIN B12 05/13/2022 ANTI-HEPATITIS C W/RFLX HCV QNT 06/09/19 24 MMR (MEASLES, MUMPS, RUBELLA) IGG TITER 06/09/2023 Urinalysis, Complete-[id number] 06/10/2024 CBC With Differential/Platelet-[id number] Vitamin D, 13-Ibkkucd-[id number] 06/10/2024 HCV Antibody RFX to Quant PCR-[id number] Comp. Metabolic Panel [id number] 2024 LP+Non-HDL Cholesterol-[id number] 06/10/2024 TSH reflex to [id number] 06/10/2024 Next Appt Details Provider Name:Dana Pruett , 02/17/2025 02:30:00 PM, [address] [place] [address], [phone], Provider Name:Dana Pruett , 07/06/2025 03:30:00 PM, [address] [place] [address], [phone], Insurance Providers Payer Name Payer Address Payer Phone Subscriber Number Group Number Insured Name Patient Relationship to Insured Coverage Start Date Coverage End Date [employer] [place] P[place] [address] [place] [address] [id number] Rosy Aguilar Self - patient is the insured Medical (General) History Medical History History ICD Code depression anxiety Surgical History Surgery Date(Month/Year) Hospitalization History Reason Date(Month/Year)
== END 2024-12-13 09:47 | disposition home or self-care (01) ==
PROVIDERS: PCP Nurse Practitioner Family; Visit Provider Obstetrics & Gynecology
DX: Z01.419 Encounter for gynecological examination (general) (routine) without abnormal findings (principal); Z30.431 Encounter for routine checking of intrauterine contraceptive device
CPT/HCPCS: 99395; 99459